=== PATIENT | female | born 1945 | race Two or more races ===

== ENCOUNTER → 2024-10-27 | Emergency (ER) | payer OTHER ==
[~2024-10-27] VITALS: Ht 157.5 cm; Wt 75.7 kg
[~2024-10-27] MED LIST: 0.9 % SODIUM CHLORIDE 1,000 ML IV ONE; CLEVIDIPINE BUTYRATE 100 ML IV SCH; COZAAR100 MG; ENALAPRILAT DIHYDRATE 1.25 MG/ML VIAL IV ONE; ENALAPRILAT DIHYDRATE 1.25 MG/ML VIAL IV STA; LABETALOL HCL 100 MG/20 ML ML ONE; LABETALOL HCL 200 MG/40 ML VIAL IV ONE; LOSARTAN POTASSIUM 100 MG TABLET PO STA; METFORMIN HCL500 M3; NIFEDIPINE 10 MG CAPSULE PO ONE; NIFEDIPINE 20 MG CAPSULE PO ONE; TAPAZOLE5 MG
[2024-10-27 23:36] LABS: BASO % 0.0 % (0.1-1.2); EOS # 0.33 (0.04-0.54); EOS % 4.6 % (0.7-7.0); LYMPH # 1.60 (1.18-3.74); LYMPH % 22.4 % (19.3-53.1); MONO # 0.59 (0.24-0.82); MONO % 8.3 % (4.7-12.5); NEUT # 4.62 (1.56-6.13); NEUT % 64.6 % (34.0-71.1); RED CELL DISTRIBUTION WIDTH 22.1 % (11.6-14.4)
[2024-10-27 23:55] LABS: INR 1.11
[2024-10-28] LABS: ALT/SGPT 18.0 U/L (12-78); AST/SGOT 22.0 U/L (15-37); BILIRUBIN TOTAL 0.65 mg/dL (0.3-1.2); BUN CREA RATIO 17.0 (7.0-25.0); CREATININE SERUM 1.0 mg/dL (0.55-1.02); GFR 53.21; GLOBULINA 3.7 G/DL (2.4-3.5); GLUCOSE FASTING 115.0 mg/dL (65-100); OSMOLALITY SERUM 289.0 MOSM/KG (275-295)
[2024-10-28 01:42] LABS: COVID-19 AG NEGATIVE (NEGATIVE)
[2024-10-28 01:43] LABS: URINE APPEARANCE Clear; URINE BILIRRUBIN Negative (NEGATIVE); URINE BLOOD NHT; URINE COLOR Yellow; URINE GLUCOSE Negative (NEGATIVE); URINE KETONE Negative (NEGATIVE); URINE LEUKOCYTE Negative; URINE NITRATE Negative; URINE PROTEIN Trace (NEGATIVE); URINE UROBILINOGEN 1.0 E.U./dl
[2024-10-28 01:47] LABS: URINE EPITHELIAL CELLS 1.6 uL (0.0-38.8); URINE RBC 16.4 uL (0.0-20.8)
[2024-10-28 02:14] LABS: URINE BACTERIA 3.5 uL (0.0-1933); URINE CAST 0.29 uL (0.0-1.40); URINE WBC 1.6 uL (0.0-23.2)
== END | disposition designated cancer center or children's hospital (05) ==
LOC: ER 22:26
PROVIDERS: General Practice
DX: I63.89 Other cerebral infarction (principal); G81.90 Hemiplegia, unspecified affecting unspecified side; I16.9 Hypertensive crisis, unspecified; Z20.822 Contact with and (suspected) exposure to COVID-19; E11.9 Type 2 diabetes mellitus without complications; Z79.84 Long term (current) use of oral hypoglycemic drugs; E03.8 Other specified hypothyroidism
CPT/HCPCS: 36415; 51702; 70450; 70552; 71045; 93005; 96365; 96366; 99285; J3490; J7030; Q9965